=== PATIENT | female | born 1995 | race African-American/Black ===

== ENCOUNTER 2022-04-15 18:59 | Emergency (ER) | payer OTHER, SELFPAY ==
[2022-04-15] MEDS ORDERED: Ibuprofen 800 MG TAB ONE (19:50)
== END 2022-04-15 21:39 | disposition home or self-care (01) ==
LOC: NAV ERS 18:59
DX: S39.012A Strain of muscle, fascia and tendon of lower back, initial encounter (principal); S76.912A Strain of unspecified muscles, fascia and tendons at thigh level, left thigh, initial encounter; V49.49XA Driver injured in collision with other motor vehicles in traffic accident, initial encounter; Y92.410 Unspecified street and highway as the place of occurrence of the external cause
CPT/HCPCS: 72100